=== PATIENT | male | born 1960 | race African-American/Black ===

== ENCOUNTER 2020-06-18 23:30 | Emergency (ER) | payer MEDICAID ==
[~2020-06-18] VITALS: Ht 180.3 cm; Wt 91.0 kg
[2020-06-19 01:08] LABS: CHLORIDE 109 mEq/L (98-107)
[2020-06-19 01:13] LABS: ETHANOL BLOOD 175 mg/dL
[2020-06-19 01:23] LABS: HEMATOCRIT. 40.3 % (42.0-52.0); HEMOGLOBIN. 13.1 g/dL (14.0-18.0); MEAN CORPUSCULAR HEMOGLOBIN 28.9 pg (28.0-32.0); MEAN CORPUSCULAR VOLUME 88.9 fL (80.0-94.0); MEAN PLATELET VOLUME 7.7 fl (7.4-10.4); PLATELET 228 x1000/uL (130-400); RED BLOOD CELL COUNT 4.53 mill/uL (4.7-6.1); RED CELL DISTRIBUTION WIDTH 14.7 % (11.6-14.6)
[2020-06-19 04:51] LABS: PLATELET ESTIMATE NORMAL
[2020-06-19 05:15] VITALS: BP 121/74
== END 2020-06-19 05:57 | disposition home or self-care (01) ==
LOC: ER 23:54
DX: F10.129 Alcohol abuse with intoxication, unspecified (principal); Y90.6 Blood alcohol level of 120-199 mg/100 ml; I10 Essential (primary) hypertension
CPT/HCPCS: 36415; 80053; 80320; 85025; 93005; 99285; G0480

== ENCOUNTER 2021-12-09 20:15 | Emergency (ER) | payer MEDICAID ==
[~2021-12-09] VITALS: Ht 182.9 cm; Wt 95.0 kg
[2021-12-09 20:18] VITALS: BP 176/93
== END 2021-12-10 00:43 | disposition home or self-care (01) ==
LOC: ER 20:15
DX: F10.129 Alcohol abuse with intoxication, unspecified (principal); Y90.0 Blood alcohol level of less than 20 mg/100 ml; I10 Essential (primary) hypertension; F17.290 Nicotine dependence, other tobacco product, uncomplicated
CPT/HCPCS: 99283; 99406

== ENCOUNTER 2022-03-24 20:47 | Emergency (ER) | payer MEDICAID ==
[~2022-03-24] VITALS: Ht 180.3 cm; Wt 91.0 kg
[2022-03-24] MEDS ORDERED: SODIUM CHLORIDE 0.9% 1,000 ML IV ONE (22:00)
[2022-03-25 02:00] VITALS: BP 123/69
== END 2022-03-25 02:33 | disposition home or self-care (01) ==
LOC: ER 20:47
DX: F10.129 Alcohol abuse with intoxication, unspecified (principal); Y90.0 Blood alcohol level of less than 20 mg/100 ml; I10 Essential (primary) hypertension
CPT/HCPCS: 82962; 96360; 96361; 99283; J7030

== ENCOUNTER 2025-01-06 21:50 | Emergency (ER) | payer MEDICARE, MEDICAID ==
[~2025-01-06] VITALS: Ht 185.4 cm; Wt 82.0 kg
[2025-01-06 22:24] VITALS: O2SAT 99
[2025-01-07 01:04] LABS: BASOPHILS % 0.8 % (0.0-2.0); EOSINOPHILS % 0.4 % (0.0-5.0); HEMATOCRIT. 39.4 % (42.0-52.0); HEMOGLOBIN. 12.7 g/dL (14.0-18.0); MEAN CORPUSCULAR HEMOGLOBIN 28.5 pg (28.0-32.0); MEAN CORPUSCULAR HGB CONC 32.3 g/dL (31.0-37.0); MEAN CORPUSCULAR VOLUME 88.3 fL (80.0-94.0); MEAN PLATELET VOLUME 7.6 fl (7.4-10.4); MONOCYTES % 14.5 % (2.0-8.0); NEUTROPHILS % 44.3 % (40.0-76.0); PLATELET 231 x1000/uL (130-400); RED BLOOD CELL COUNT 4.46 mill/uL (4.7-6.1); RED CELL DISTRIBUTION WIDTH 15.1 % (11.6-14.6); WHITE BLOOD COUNT 4.5 x1000/uL (4.5-11.0)
[2025-01-07 01:14] LABS: POTASSIUM 4.3 mEq/L (3.5-5.1)
[2025-01-07 01:16] LABS: CALCIUM 9.5 mg/dL (8.7-10.4)
[2025-01-07 01:20] LABS: CREATININE 1.6 mg/dL (0.6-1.3)
[2025-01-07] MEDS ORDERED: TAMS-11 MT (02:08)
[2025-01-07 03:27] VITALS: BP 141/85; PULSE 88; RESP 14; TEMP 36.8; O2SAT 98
== END 2025-01-07 02:10 | disposition left against medical advice (07) ==
LOC: ER 21:50
DX: N40.1 Benign prostatic hyperplasia with lower urinary tract symptoms (principal); R33.9 Retention of urine, unspecified; I10 Essential (primary) hypertension; F03.90 Unspecified dementia, unspecified severity, without behavioral disturbance, psychotic disturbance, mood disturbance, and anxiety
CPT/HCPCS: 36415; 76770; 80048; 85025; 99284